=== PATIENT | female | born 1965 | race Caucasian/White ===

== ENCOUNTER 2017-05-06 21:01 | Emergency (ER) | payer MEDICAID ==
[~2017-05-06] VITALS: Ht 157.5 cm; Wt 140.6 kg
[2017-05-06 22:02] LABS: Basophils # (auto) 0 uL; Basophils % (auto) 0.4 % (0.0-2.0); Eosinophils # (auto) 0.1 uL; Eosinophils % (auto) 0.8 % (0.0-7.0); Hematocrit 43.5 % (36.0-46.0); Hemoglobin 14.5 g/dL (12.2-16.2); Lymphocytes # (auto) 2.2 uL; Mean Corpuscular Hemoglobin 30.5 pg (28.0-32.0); Mean Corpuscular Hgb Conc. 33.4 g/dL (32.0-36.0); Mean Corpuscular Volume 91.4 fL (80.0-100.0); Monocytes # (auto) 0.6 uL; Monocytes % (auto) 5.4 % (0.0-12.0); Neutrophils % (auto) 75.4 % (37.0-80.0); Nucleated Red Blood Cells % 0.1 %; Platelet Count (auto) 195 10^3/uL (140-450); Red Blood Cells 4.76 10^6/uL (4.0-5.20); Red Cell Distribution Width 14.2 % (11.8-14.3)
[2017-05-06 22:19] LABS: INR 0.95 (0.9-1.15); Partial Thromboplastin Time 28.5 sec (22.64-33.71); Prothrombin Time 10.3 sec (9.37-12.3)
[2017-05-06 22:30] LABS: Urine Bacteria NONE SEEN /hpf (None Seen); Urine Blood Negative /uL (Negative); Urine Mucus FEW (None Seen); Urine Specific Gravity 1.024 (1.001-1.035); Urine WBC 2 /hpf (0 - 5)
[2017-05-06 22:33] LABS: Alanine Aminotransferase 13 U/L (13-56); Albumin 3.3 g/dL (3.4-5.0); Alkaline Phosphatase 97 U/L (45-117); Amylase 32 U/L (25-115); Anion Gap 7 (5-15); Aspartate Aminotransferase 8 U/L (15-37); BUN/Creatinine Ratio 15.6; Bilirubin, Total 0.6 mg/dL (0.2-1.0); Blood Urea Nitrogen 12 mg/dL (7-18); Calcium 9.8 mg/dL (8.5-10.1); Carbon Dioxide 24 mmol/L (21-32); Chloride 108 mmol/L (98-107); GFR African American 101 mL/min; GFR Non-African American 83 mL/min; Glucose 115 mg/dL (74-106); Lipase 79 U/L (73-393); Magnesium 2.3 mg/dL (1.6-2.6); Potassium 3.4 mmol/L (3.5-5.1); Sodium 139 mmol/L (136-145); Total Protein 7.3 g/dL (6.4-8.2)
[2017-05-07] MEDS ORDERED: POTASSIUM CHL 10% (20 MEQ/15ML) 15ml ORAL SOLN PO ONE ×2 (07:45→08:30)
[2017-05-07] MEDS ORDERED: cefTRIAXone W LIDOCAINE 1 GM IM IM ONE ×2 (07:45→08:30)
[2017-05-07] MEDS ORDERED: cefTRIAXone SOD 1,000 MG VL ONE (08:25)
[2017-05-07] MEDS ORDERED: LIDOCAINE 2%HCL (LOCAL ANESTH.) INJ 20ML MDV ONE (08:25)
[2017-05-07] MEDS ORDERED: KETOROLAC TROMETH 60MG/2ML VIAL IM ONE ×2 (08:28→08:30)
[2017-05-07 08:30] VITALS: BP 155/86
== END 2017-05-07 08:11 | disposition home or self-care (01) ==
LOC: ER 21:01
DX: K80.20 Calculus of gallbladder without cholecystitis without obstruction (principal); I25.10 Atherosclerotic heart disease of native coronary artery without angina pectoris; I10 Essential (primary) hypertension; Z88.8 Allergy status to other drugs, medicaments and biological substances; Z88.6 Allergy status to analgesic agent
CPT/HCPCS: 36415; 74176; 80053; 81001; 81025; 82150; 83690; 83735; 84484; 85025; 85610; 85730; 93005; 96372; 99285; J0696; J1885

== ENCOUNTER 2018-05-24 18:13 | Inpatient (IN) | payer SELFPAY ==
[~2018-05-24] VITALS: Ht 157.5 cm; Wt 119.4 kg
[2018-05-24] MEDS ORDERED: ASPirin 81 mg TAB PO ONE (20:45)
[2018-05-24 20:59] LABS: Basophils # (auto) 0.1 uL; Basophils % (auto) 0.9 % (0.0-2.0); Eosinophils # (auto) 0.1 uL; Eosinophils % (auto) 0.6 % (0.0-7.0); Hematocrit 49.5 % (36.0-46.0); Hemoglobin 16.5 g/dL (12.2-16.2); Lymphocytes # (auto) 1.7 uL; Mean Corpuscular Hemoglobin 30.8 pg (28.0-32.0); Mean Corpuscular Hgb Conc. 33.3 g/dL (32.0-36.0); Mean Corpuscular Volume 92.5 fL (80.0-100.0); Monocytes # (auto) 0.4 uL; Monocytes % (auto) 3.3 % (0.0-12.0); Neutrophils # (auto) 10.1 uL; Neutrophils % (auto) 81.2 % (37.0-80.0); Platelet Count (auto) 235 10^3/uL (140-450); Red Blood Cells 5.35 10^6/uL (4.0-5.20); Red Cell Distribution Width 13.3 % (11.8-14.3); White Blood Cell 12.4 10^3/uL (4.4-10.8)
[2018-05-24 21:01] LABS: Alanine Aminotransferase 18 U/L (13-56); Albumin 4.1 g/dL (3.4-5.0); Anion Gap 7 (5-15); Aspartate Aminotransferase 11 U/L (15-37); BUN/Creatinine Ratio 11.8; Blood Urea Nitrogen 9 mg/dL (7-18); Calcium 10.3 mg/dL (8.5-10.1); Carbon Dioxide 25 mmol/L (21-32); Chloride 107 mmol/L (98-107); GFR African American 102 mL/min; GFR Non-African American 84 mL/min; Glucose 94 mg/dL (74-106); Magnesium 2.3 mg/dL (1.6-2.6); Potassium 3.6 mmol/L (3.5-5.1); Sodium 139 mmol/L (136-145)
[2018-05-24 21:06] LABS: Alkaline Phosphatase 82 U/L (45-117); Bilirubin, Total 0.9 mg/dL (0.2-1.0); Total Protein 8.2 g/dL (6.4-8.2)
[2018-05-24 21:26] LABS: INR 0.92 (0.9-1.15); Partial Thromboplastin Time 28.2 sec (23.78-33.04); Prothrombin Time 9.9 sec (9.27-12.13)
[2018-05-25] MEDS ORDERED: DOCUSATE SOD 100 MG CAP PO PRN (03:45)
[2018-05-25] MEDS ORDERED: ONDANSETRON HCL 4 MG/2 ML VIAL IV PRN (03:45)
[2018-05-25] MEDS ORDERED: NITROGLYCERIN 0.4 MG SL TAB SL PRN (03:45)
[2018-05-25 06:16] LABS: Urine Bacteria NONE SEEN /hpf (None Seen); Urine Blood Negative /uL (Negative); Urine Mucus MANY (None Seen); Urine Specific Gravity 1.018 (1.001-1.035); Urine WBC 1 /hpf (0 - 5)
[2018-05-25 07:16] LABS: Basophils # (auto) 0 uL; Basophils % (auto) 0.2 % (0.0-2.0); Eosinophils # (auto) 0.1 uL; Eosinophils % (auto) 0.7 % (0.0-7.0); Hematocrit 44.4 % (36.0-46.0); Lymphocytes % (auto) 22.5 % (10.0-50.0); Mean Corpuscular Hemoglobin 31.3 pg (28.0-32.0); Mean Corpuscular Hgb Conc. 33.8 g/dL (32.0-36.0); Mean Corpuscular Volume 92.6 fL (80.0-100.0); Monocytes # (auto) 0.5 uL; Neutrophils # (auto) 6.4 uL; Neutrophils % (auto) 70.6 % (37.0-80.0); Nucleated Red Blood Cells % 0.2 %; Platelet Count (auto) 202 10^3/uL (140-450); Red Blood Cells 4.79 10^6/uL (4.0-5.20); Red Cell Distribution Width 13.2 % (11.8-14.3)
[2018-05-25 07:42] LABS: BUN/Creatinine Ratio 18.5; Calcium 9.8 mg/dL (8.5-10.1); Potassium 3.8 mmol/L (3.5-5.1)
[2018-05-25] MEDS ORDERED: LISINOPRIL 20 MG TAB PO SCH (10:00)
[2018-05-25] MEDS: LISINOPRIL 20 MG TAB PO SCH (10:00)
[2018-05-25] MEDS: METOPROLOL TARTRATE 25 MG TAB PO SCH ×3 (10:00→21:45)
[2018-05-25] MEDS: amLODIPine BESYLATE 5 MG TAB PO SCH (10:00)
[2018-05-25] MEDS: ASPirin-EC 81 mg tab PO SCH (10:01)
[2018-05-25] MEDS: FAMOTIDINE 20 MG TAB PO SCH ×2 (10:11→21:45)
--- NOTE | 2018-05-25 10:30 | NUR ---
Telemetry admit from ER KYLER CASTRO admitted to Telemetry unit after SBAR received by ARGELIA Mcmahon. Patient oriented to Stephany Jacob primary RN, unit, room, bed, and unit policies regarding patient care and visiting hours. Patient now on continuous telemetry monitoring, tele box #22 and telemetry reading on arrival to unit is SR 76. Patient on room air, O2 saturation 97%. No signs of SOB/distress noted. Safety precautions in place including, bed set to lowest position/locked, bedside rails up x2, call light within reach. Instructed patient to call for assistance. Discussed POC with patient. Patient verbalized understanding. Will continue to monitor q 1 hr and prn.
[2018-05-25] MEDS ORDERED: AMLO5TAB13 PO (11:49)
[2018-05-25] MEDS ORDERED: LISI40TA PO (11:49)
[2018-05-25] MEDS ORDERED: METO25TA5 PO (11:49)
[2018-05-25 13:00] VITALS: BP 131/68
[2018-05-25 13:31] LABS: Cholesterol 118 mg/dL (< 200)
[2018-05-25 13:33] LABS: HDL Cholesterol 37 mg/dL (40-59); LDL Cholesterol 80 mg/dL (< 100); Triglycerides 85 mg/dL (< 150)
[2018-05-25 16:58] VITALS: BP 131/80
--- NOTE | 2018-05-25 19:11 | NUR ---
ENDORSED CARE TO ARGELIA AGUILAR.
--- NOTE | 2018-05-25 19:37 | NUR ---
Opening Shift Note Assumed care of patient, awake and alert oriented x4. No S/S of distress/SOB or pain noted. Bed is in lowest locked position with bed rails up x2 and call light is within reach of the patient. Instructed on POC and to call for assist PRN.
[2018-05-25 22:37] VITALS: BP 124/79
[2018-05-26 04:20] VITALS: BP 102/58
--- NOTE | 2018-05-26 07:20 | NUR ---
OPENING NOTE ASSUMED CARE OF PT. PT IS LAYING ON BED, HOB SEMI-FOWLERS. PT IS A&O X4. ON ROOM AIR, O2 SATURATION 98%. NO SIGNS OF SOB/DISTRESS NOTED. TELE #22, HR 65. SAFETY PRECAUTIONS IN PLACE INCLUDING BED SET TO LOWEST POSITION/LOCKED, BEDSIDE RAILS UP X2, CALL LIGHT WITHIN REACH. INSTRUCTED PT TO CALL FOR ASSISTANCE. DISCUSSED POC WITH PT. PT VERBALIZED UNDERSTANDING. WILL CONTINUE TO MONITOR Q 1HR AND PRN.
[2018-05-26 09:25] VITALS: BP 130/83
[2018-05-26] MEDS: ASPirin-EC 81 mg tab PO SCH (09:42)
[2018-05-26] MEDS: FAMOTIDINE 20 MG TAB PO SCH ×2 (09:43→22:08)
[2018-05-26] MEDS: METOPROLOL TARTRATE 25 MG TAB PO SCH ×2 (09:43→22:09)
[2018-05-26] MEDS: amLODIPine BESYLATE 5 MG TAB PO SCH (09:44)
[2018-05-26] MEDS: LISINOPRIL 20 MG TAB PO SCH (09:45)
[2018-05-26 13:06] VITALS: BP 122/76
[2018-05-26 17:27] VITALS: BP 135/72
--- NOTE | 2018-05-26 19:17 | NUR ---
ENDORSED CARE TO ARGELIA AGUILAR.
--- NOTE | 2018-05-26 19:45 | NUR ---
Opening Shift Note Assumed care of patient, awake and alert oriented x4. Bed is in lowest locked position with bed rails up x2 and call light is within reach of the patient. No S/S of distress/SOB noted. Instructed on POC and to call for assist PRN.
[2018-05-26 22:00] VITALS: BP 146/74
[2018-05-27 05:00] VITALS: BP 139/83
--- NOTE | 2018-05-27 07:05 | NUR ---
Closing note: Patient is resting in bed with breaths even and unlabored. No S/S of distress SOB noted. Bed is in lowest locked position with bed rails up x2 and call light is within reach of the patient. Will endorse care to day shift nurse.
--- NOTE | 2018-05-27 07:45 | NUR ---
OPENING NOTE ASSUMED CARE OF PT. PT IS LAYING ON BED, HOB SEMI-FOWLERS. PT IS A&O X4. ON ROOM AIR. NO SIGNS OF SOB/DISTRESS NOTED. TELE #22. SAFETY PRECAUTIONS IN PLACE INCLUDING BED SET TO LOWEST POSITION/LOCKED, BEDSIDE RAILS UP X2, CALL LIGHT WITHIN REACH. INSTRUCTED PT TO CALL FOR ASSISTANCE. DISCUSSED POC WITH PT. PT VERBALIZED UNDERSTANDING. WILL CONTINUE TO MONITOR Q 1HR AND PRN.
[2018-05-27 08:47] VITALS: BP 117/72
--- NOTE | 2018-05-27 09:08 | NUR ---
SPOKE TO DR. Misti PAULINO VIA PHONE. PER DR. 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 PER DR. PAULINO CALL THE CONSULT THE BAR FINISH OPERATOR FOOD AND BEVERAGE CHECKER. FOOD AND BEVERAGE CHECKER CONSULT WILL BE PLACED WITH BAR FINISH OPERATOR FOOD AND BEVERAGE CHECKER DR. CALLAHAN.
[2018-05-27] MEDS: amLODIPine BESYLATE 5 MG TAB PO SCH (09:34)
[2018-05-27] MEDS: LISINOPRIL 20 MG TAB PO SCH (09:35)
[2018-05-27] MEDS: ASPirin-EC 81 mg tab PO SCH (09:35)
[2018-05-27] MEDS: METOPROLOL TARTRATE 25 MG TAB PO SCH ×2 (09:35→21:10)
[2018-05-27] MEDS: FAMOTIDINE 20 MG TAB PO SCH ×2 (09:35→21:10)
[2018-05-27 12:32] VITALS: BP 133/82
[2018-05-27 16:50] VITALS: BP 123/71
--- NOTE | 2018-05-27 19:35 | NUR ---
Opening Shift Note Assumed care of patient, awake and alert. No S/S of distress/SOB or pain. Bed locked in lowest position, side rails upx2, call light within reach. Instructed on POC and to call for assist PRN, will continue to monitor for changes Q1hr and PRN.
--- NOTE | 2018-05-27 19:49 | NUR ---
ENDORSED CARE TO ARGELIA SIERRA.
[2018-05-27 22:00] VITALS: BP 127/65
[2018-05-28 05:00] VITALS: BP 110/73
--- NOTE | 2018-05-28 05:00 | NUR ---
IV insertion IV access obtained, via clean sterile technique by inserting 20 gauge catheter at LEFT FOREARM after 1 attempt(s). IV secured properly. No trauma to site. Patient tolerated well.
--- NOTE | 2018-05-28 05:01 | NUR ---
IV insertion IV access obtained, via clean sterile technique by inserting 22 gauge catheter at RIGHT FOREARM after 1 attempt(s). IV secured properly. No trauma to site. Patient tolerated well.
--- NOTE | 2018-05-28 08:00 | NUR ---
OPENING NOTE OBSERVED PT SITTING UP IN BED, PT DENIES ANY PAIN/SOB AT THIS TIME. PT C/O SLIGHT ANXIETY R/T PENDING STRESS TEST. PT INFORMED THAT NO ORDER FOR STRESS TEST OF YET, BUT I WILL CONTACT PHYSICIAN REGARDING ORDERS. PT VERBALIZED UNDERSTANDING. PT ENCOURAGED TO CONTACT STAFF FOR PRN ASSISTANCE. CALL LIGHT WITHIN REACH. FALL PRECAUTIONS IN PLACE. WILL CONTINUE TO MONITOR Q1H AND PRN. CONTINUE PT CARE.
--- NOTE | 2018-05-28 08:20 | NUR ---
PAGED DR. CALLAHAN PAGED REGARDING CONSULT NOTE REFERENCING STRESS TEST AND NO STRESS TEST ORDERED. WAITING ON RESPONSE.
--- NOTE | 2018-05-28 08:36 | NUR ---
RETURNED PAGE DR. CALLAHAN RETURNED PAGE. OK TO PLACE ORDER FOR NM STRESS TEST.
[2018-05-28 08:39] VITALS: BP 148/89
--- NOTE | 2018-05-28 09:50 | NUR ---
STRESS TEST CALLED FAY TO CHECK ON STATUS OF STRESS TEST. FAY STATING PATIENT IS ON SCHEDULE FOR TODAY, BUT NOT SURE WHAT TIME IT WILL BE COMPLETED. PT UPDATED.
[2018-05-28] MEDS: ASPirin-EC 81 mg tab PO SCH (09:57)
[2018-05-28] MEDS: FAMOTIDINE 20 MG TAB PO SCH ×2 (09:57→21:03)
[2018-05-28] MEDS: amLODIPine BESYLATE 5 MG TAB PO SCH (09:58)
[2018-05-28] MEDS: LISINOPRIL 20 MG TAB PO SCH (09:58)
[2018-05-28] MEDS: METOPROLOL TARTRATE 25 MG TAB PO SCH ×2 (09:58→21:03)
[2018-05-28] MEDS ORDERED: ADENOSINE 101 MG in GIVE UN-DILUTED 0 ML IV STA (10:33)
--- NOTE | 2018-05-28 11:45 | NUR ---
OFF UNIT PT TAKEN OFF UNIT VIA WC FOR STRESS TEST. NO DISTRESS NOTED AT TIME OF DEPARTURE.
[2018-05-28 12:14] VITALS: BP 137/97
[2018-05-28 12:25] VITALS: BP 109/62
--- NOTE | 2018-05-28 13:00 | NUR ---
RETURNED TO UNIT PT RETURNED TO UNIT FROM PA. LUNCH TRAY PROVIDED. PT HAS NO C/O PAIN/DISTRESS. WILL CONTINUE TO MONITOR.
--- NOTE | 2018-05-28 15:07 | NUR ---
Nutrition Assessment Notes please see attached link for complete assessment Est. Needs ABW [id number] kcal (17-20 kcal/kgBW), 68-85 gms pro (0.8-1.0 gms/kgBW). Will continue to monitor pertinent labs and reassess nutrient need prn Addendum: 05/28/18 at [address] Amended: Links added.
--- NOTE | 2018-05-28 15:35 | NUR ---
STATUS PATIENTS FAMILY STATING THAT MD WAS AT BEDSIDE, STATING HE WOULD BE BACK TO DISCUSS STRESS TESTING REPORT. FAMILY INQUIRING TO WHAT RESULT OF STUDY WAS. INFORMED THEM THAT RESULT NOT AVAILABLE FOR PRIMARY RN TO VIEW AT THIS TIME. FAMILY EXPRESSING FRUSTRATIONS THAT MD HAS NOT RETURNED TO UPDATE WITH REPORT OF YET. PT/FAMILY UNSURE IF MD AT BEDSIDE WAS DR. CALLAHAN OR DR. ESPAÑA. CALLED DR. ESPAÑA TO INQUIRE. MD STATING DR. CALLAHAN IS READING STRESS TESTS TODAY. CALL OUT TO DR. CALLAHAN. WAITING ON RESPONSE. PT/FAMILY UPDATED AND VERBALIZED UNDERSTANDING.
[2018-05-28 16:56] VITALS: BP 115/75
--- NOTE | 2018-05-28 17:36 | NUR ---
RETURNED PAGE DR. CALLAHAN RETURNED PAGE. PROVIDED WITH STRESS TEST OPERATIVE RECORD/REPORT. MD STATING OK TO TELL PATIENT NO EVIDENCE OF A BLOCKAGE AND NO NEED FOR A CARDIAC CATHETERIZATION AT THIS TIME. PT AND PATIENT DAUGHTER, JIE, MADE AWARE AND VERBALIZED UNDERSTANDING.
[2018-05-28] MEDS: ACETAMINOPHEN 325 MG TAB PO PRN (18:54)
[2018-05-28 22:00] VITALS: BP 111/77
[2018-05-29 05:00] VITALS: BP 129/62
--- NOTE | 2018-05-29 07:30 | NUR ---
OPENING NOTE OBSERVED PT SITTING UP IN BED, PT DENIES ANY PAIN/DISTRESS AT THIS TIME. PATIENT STATING LAST NIGHT 'I FELT A COUPLE PALPITATIONS...PROBABLY JUST ANXIETY'. DENIES ANY ANXIETY/DISCOMFORT AT THIS TIME. PT WAS UPDATED ON POC AND VERBALIZED UNDERSTANDING. CALL LIGHT WITHIN REACH. FALL PRECAUTIONS IN PLACE. WILL CONTINUE TO MONITOR Q1H AND PRN. CONTINUE PT CARE.
[2018-05-29 08:20] VITALS: BP 127/82
[2018-05-29] MEDS: FAMOTIDINE 20 MG TAB PO SCH (09:11)
[2018-05-29] MEDS: ACETAMINOPHEN 325 MG TAB PO PRN (09:11)
[2018-05-29] MEDS: amLODIPine BESYLATE 5 MG TAB PO SCH (09:11)
[2018-05-29] MEDS: LISINOPRIL 20 MG TAB PO SCH (09:12)
[2018-05-29] MEDS: METOPROLOL TARTRATE 25 MG TAB PO SCH (09:12)
[2018-05-29] MEDS: ASPirin-EC 81 mg tab PO SCH (09:12)
--- NOTE | 2018-05-29 11:17 | NUR ---
AT BEDSIDE DR. AJ AT BEDSIDE DISCUSSING POC/DC PLAN WITH PT. PT AGREEABLE AND VERBALIZED UNDERSTANDING.
--- NOTE | 2018-05-29 11:45 | NUR ---
AT BEDSIDE DR. CALLAHAN AT BEDSIDE DISCUSSING POC WITH PT. NO ORDERS RECEIVED AT THIS TIME.
[2018-05-29 11:50] VITALS: BP 127/82
[2018-05-29 11:57] VITALS: BP 140/83
--- NOTE | 2018-05-29 12:42 | NUR ---
Discharge instructions given as ordered. Encourage to follow up with PMD as instructed. All questions and concerns addressed. Patient verbalized understanding. Medication reconciliation form completed and copy given to patient. Home medications held in Pharmacy returned to patient. IV removed with catheter intact. Telemetry unit returned to ICU. Patient taken to vehicle via wheelchair with all personal belongings, accompanied by staff and family member. No distress noted at time of departure.
== END 2018-05-29 12:42 | disposition home or self-care (01) | DRG 305 ==
LOC: EDBD 18:13 → EDUNIT# 18:13 → ER 18:18 → TELE 05-25 03:39 → TELE-WESTW 05-25 10:33
PROVIDERS: ADMIT Nurse Practitioner Family; ATTEND Family Medicine
DX: I10 Essential (primary) hypertension (principal); Z68.42 Body mass index [BMI] 45.0-49.9, adult; D72.829 Elevated white blood cell count, unspecified; E66.01 Morbid (severe) obesity due to excess calories; Z88.5 Allergy status to narcotic agent; Z88.8 Allergy status to other drugs, medicaments and biological substances; F41.9 Anxiety disorder, unspecified
CPT/HCPCS: 36415; 71045; 78452; 80048; 80053; 80061; 81001; 83735; 83880; 84443; 84484; 85025; 85379; 85610; 85730; 93005; 93017; 93306; 94761; G0378; J0153

== ENCOUNTER 2020-02-24 13:56 | Emergency (ER) | payer MEDICAID, OTHER ==
[~2020-02-24] VITALS: Ht 157.5 cm; Wt 50.3 kg
[~2020-02-24 13:56] MED LIST: AMLO5TAB15 PO; LISI40TA11 PO; METO25TA5 PO
[2020-02-24] MEDS ORDERED: ASPirin 81 mg TAB PO ONE (14:15)
[2020-02-24 15:45] LABS: Basophils # (auto) 0 10 ^3/uL (0-0.2); Basophils % (auto) 0.2 % (0.0-2.0); Eosinophils # (auto) 0 10 ^3/uL (0-0.8); Hematocrit 43.1 % (36.0-46.0); Hemoglobin 15.2 g/dL (12.2-16.2); Lymphocytes # (auto) 1.2 10 ^3/uL (0.4-5.4); Lymphocytes % (auto) 11.3 % (10.0-50.0); Mean Corpuscular Hemoglobin 32.4 pg (28.0-32.0); Mean Corpuscular Hgb Conc. 35.3 g/dL (32.0-36.0); Mean Corpuscular Volume 91.8 fL (80.0-100.0); Monocytes # (auto) 0.5 10 ^3/uL (0-1.3); Monocytes % (auto) 4.3 % (0.0-12.0); Neutrophils # (auto) 9.2 10 ^3/uL (1.6-8.6); Neutrophils % (auto) 84.2 % (37.0-80.0); Platelet Count (auto) 191 10^3/uL (140-450); Red Blood Cells 4.69 10^6/uL (4.0-5.20); Red Cell Distribution Width 12.9 % (11.8-14.3)
[2020-02-24 16:02] LABS: Albumin 3.9 g/dL (3.4-5.0); Anion Gap 7 (5-15); Blood Urea Nitrogen 13 mg/dL (7-18); Calcium 10.4 mg/dL (8.5-10.1); Carbon Dioxide 27 mmol/L (21-32); Chloride 106 mmol/L (98-107); Glucose 106 mg/dL (74-106); Potassium 3.8 mmol/L (3.5-5.1); Sodium 140 mmol/L (136-145)
[2020-02-24 16:08] LABS: Alanine Aminotransferase 24 U/L (13-56); Alkaline Phosphatase 108 U/L (45-117); Aspartate Aminotransferase 16 U/L (15-37); BUN/Creatinine Ratio 14.1; Bilirubin, Total 0.7 mg/dL (0.2-1.0); GFR African American 82 mL/min; GFR Non-African American 67 mL/min; Total Protein 8.2 g/dL (6.4-8.2)
[2020-02-24 21:20] VITALS: BP 159/62
== END 2020-02-24 22:52 | disposition home or self-care (01) ==
LOC: ER 13:56
DX: R07.2 Precordial pain (principal); M79.662 Pain in left lower leg; I10 Essential (primary) hypertension; E78.5 Hyperlipidemia, unspecified; Z79.899 Other long term (current) drug therapy; Z88.5 Allergy status to narcotic agent; Z88.8 Allergy status to other drugs, medicaments and biological substances
CPT/HCPCS: 36415; 71045; 80053; 83735; 83880; 84484; 85025; 85379; 93971

== ENCOUNTER 2020-06-07 10:10 | Emergency (ER) | payer OTHER ==
[~2020-06-07] VITALS: Ht 157.5 cm; Wt 136.1 kg
[~2020-06-07 10:10] MED LIST changes: +AMLO-489 PO; -AMLO5TAB15 PO
[2020-06-07 10:36] LABS: Basophils # (auto) 0.1 10 ^3/uL (0-0.2); Basophils % (auto) 0.7 % (0.0-2.0); Eosinophils # (auto) 0 10 ^3/uL (0-0.8); Hemoglobin 15.6 g/dL (12.2-16.2); Lymphocytes # (auto) 2.1 10 ^3/uL (0.4-5.4); Mean Corpuscular Hgb Conc. 34.6 g/dL (32.0-36.0); Mean Corpuscular Volume 92.3 fL (80.0-100.0); Monocytes # (auto) 0.5 10 ^3/uL (0-1.3); Monocytes % (auto) 5.1 % (0.0-12.0); Neutrophils # (auto) 6.9 10 ^3/uL (1.6-8.6); Neutrophils % (auto) 72.2 % (37.0-80.0); Nucleated Red Blood Cells % 0.2 %; Platelet Count (auto) 206 10^3/uL (140-450); Red Blood Cells 4.87 10^6/uL (4.0-5.20); Red Cell Distribution Width 13.1 % (11.8-14.3); White Blood Cell 9.5 10^3/uL (4.4-10.8)
[2020-06-07 10:59] LABS: Albumin 3.8 g/dL (3.4-5.0); Anion Gap 6 (5-15); Blood Urea Nitrogen 14 mg/dL (7-18); Calcium 10.8 mg/dL (8.5-10.1); Carbon Dioxide 26 mmol/L (21-32); Chloride 109 mmol/L (98-107); Glucose 125 mg/dL (74-106); Potassium 3.8 mmol/L (3.5-5.1); Sodium 141 mmol/L (136-145)
[2020-06-07 11:00] VITALS: BP 168/80
[2020-06-07 11:04] LABS: Alanine Aminotransferase 17 U/L (13-56); Alkaline Phosphatase 103 U/L (45-117); Aspartate Aminotransferase 14 U/L (15-37); BUN/Creatinine Ratio 18.2; Bilirubin, Total 0.7 mg/dL (0.2-1.0); GFR African American 100 mL/min; GFR Non-African American 82 mL/min; Total Protein 7.8 g/dL (6.4-8.2)
[2020-06-07 12:22] LABS: Urine Amorphous Crystal FEW /hpf (None Seen); Urine Bacteria FEW /hpf (None Seen); Urine Blood Negative /uL (Negative); Urine Mucus FEW (None Seen); Urine WBC 5 /hpf (0 - 5)
== END 2020-06-07 14:53 | disposition home or self-care (01) ==
LOC: ER 10:10
DX: R42 Dizziness and giddiness (principal); F41.9 Anxiety disorder, unspecified; H53.2 Diplopia; I10 Essential (primary) hypertension; E78.5 Hyperlipidemia, unspecified; Z88.6 Allergy status to analgesic agent
CPT/HCPCS: 36415; 70450; 71045; 80053; 81001; 84484; 85025; 93005; 93886

== ENCOUNTER → 2021-01-12 | Emergency (ER) | payer OTHER ==
[~2021-01-12] VITALS: Ht 157.5 cm; Wt 140.6 kg
[~2021-01-12] MED LIST changes: +KETOROLAC TROMETH 30 MG/ML 1ML VIAL IV ONE; +ONDANSETRON HCL 4 MG/2 ML VIAL ONE; +SODIUM CHLORIDE 0.9% 1,000 ML IV ONE; +cefTRIAXone 1GM/50ML D5W 50 ML IV ONE
[2021-01-12 16:07] LABS: Basophils # (auto) 0 10 ^3/uL (0-0.2); Basophils % (auto) 0.2 % (0.0-2.0); Eosinophils # (auto) 0 10 ^3/uL (0-0.8); Eosinophils % (auto) 0.1 % (0.0-7.0); Hematocrit 46.6 % (36.0-46.0); Hemoglobin 15.5 g/dL (12.2-16.2); Lymphocytes # (auto) 2.2 10 ^3/uL (0.4-5.4); Lymphocytes % (auto) 17.7 % (10.0-50.0); Mean Corpuscular Hemoglobin 30.5 pg (28.0-32.0); Mean Corpuscular Hgb Conc. 33.2 g/dL (32.0-36.0); Mean Corpuscular Volume 91.8 fL (80.0-100.0); Monocytes # (auto) 0.7 10 ^3/uL (0-1.3); Monocytes % (auto) 5.4 % (0.0-12.0); Neutrophils # (auto) 9.4 10 ^3/uL (1.6-8.6); Neutrophils % (auto) 76.6 % (37.0-80.0); Nucleated Red Blood Cells % 0.1 %; Red Blood Cells 5.07 10^6/uL (4.0-5.20); Red Cell Distribution Width 13.2 % (11.8-14.3); White Blood Cell 12.2 10^3/uL (4.4-10.8)
[2021-01-12 16:30] LABS: Albumin 3.5 g/dL (3.4-5.0); BUN/Creatinine Ratio 15.5; Calcium 10.5 mg/dL (8.5-10.1)
[2021-01-12 16:33] LABS: Bilirubin, Total 0.7 mg/dL (0.2-1.0); Total Protein 8.1 g/dL (6.4-8.2)
[2021-01-12 17:05] LABS: Urine Bacteria NONE SEEN /hpf (None Seen); Urine Blood Negative /uL (Negative); Urine Mucus FEW (None Seen); Urine Specific Gravity 1.025 (1.001-1.035); Urine WBC 95 /hpf (0 - 5)
[2021-01-12 21:00] VITALS: BP 141/78
== END | disposition home or self-care (01) ==
LOC: ER 15:19
DX: N12 Tubulo-interstitial nephritis, not specified as acute or chronic (principal); I10 Essential (primary) hypertension; E78.5 Hyperlipidemia, unspecified; Z79.899 Other long term (current) drug therapy; Z88.8 Allergy status to other drugs, medicaments and biological substances; Z88.5 Allergy status to narcotic agent
CPT/HCPCS: 36415; 76705; 80053; 81001; 83690; 85025; 93005; 96365; 96375; 99285; J0696; J1885; J7030; J2405

== ENCOUNTER 2023-12-06 08:22 | Emergency (ER) | payer BC, OTHER ==
[~2023-12-06] VITALS: Ht 157.5 cm; Wt 142.1 kg
[~2023-12-06 08:22] MED LIST changes: -AMLO-489 PO; +AMLO1TAB22 PO; -KETOROLAC TROMETH 30 MG/ML 1ML VIAL IV ONE; -LISI40TA11 PO; +LISI40TA16 PO; -ONDANSETRON HCL 4 MG/2 ML VIAL ONE; -SODIUM CHLORIDE 0.9% 1,000 ML IV ONE; -cefTRIAXone 1GM/50ML D5W 50 ML IV ONE
[2023-12-06 08:47] VITALS: BP 148/85; PULSE 100; RESP 18; TEMP 98.4; O2SAT 95
[2023-12-06] MEDS: cefTRIAXone SOD 1,000 MG VL IM ONE (08:59)
[2023-12-06] MEDS ORDERED: AMOX1SUS99 PO (09:09)
== END 2023-12-06 09:21 | disposition home or self-care (01) ==
LOC: ER 08:22
DX: K04.7 Periapical abscess without sinus (principal); I10 Essential (primary) hypertension; E78.00 Pure hypercholesterolemia, unspecified; Z79.899 Other long term (current) drug therapy; Z88.5 Allergy status to narcotic agent; Z98.890 Other specified postprocedural states
CPT/HCPCS: 96372; 99283; J0696